=== PATIENT | female | born 1970 | race Caucasian/White ===

== ENCOUNTER 2020-03-02 08:21 | Outpatient (CLI) | payer OTHER, SELFPAY ==
--- NOTE | ~2020-03-02 | MM_ITS ---
EXAMINATION: MM screening [facility] [place] BI w alex HISTORY: Screening mammogram TECHNIQUE: Craniocaudal and mediolateral oblique 3-D tomosynthesis images were obtained and synthetic 2-D images were generated. CAD analysis was submitted and interpreted. COMPARISON: 09/04/2018, 06/01/2017, 11/22/2016, 05/16/2016 BREAST PARENCHYMAL COMPOSITION: There are scattered areas of fibroglandular density. FINDINGS: There is no evidence of suspicious mass, calcification, or architectural distortion to sugg est malignancy in either breast. There has been no suspicious interval change. IMPRESSION: 1. No mammographic evidence of malignancy. 2. Recommend routine screening mammography in one year. BI-RADS Category 1: Negative Reviewed, dictated and finalized at location A. MBOAT PILOT
== END 2020-03-02 08:22 | disposition home or self-care (01) ==
LOC: ANHIMG 08:24
PROVIDERS: PCP Family Medicine; Visit Provider Obstetrics & Gynecology
DX: Z12.31 Encounter for screening mammogram for malignant neoplasm of breast (principal)
CPT/HCPCS: 77063; 77067

== ENCOUNTER 2021-04-09 08:23 | Outpatient (CLI) | payer OTHER, SELFPAY ==
--- NOTE | ~2021-04-09 | MM_ITS ---
EXAMINATION: MM screening [facility] BI w alex HISTORY: Screening TECHNIQUE: Craniocaudal and mediolateral oblique 3-D tomosynthesis images were obtained and synthetic 2-D images were generated. CAD analysis was submitted and interpreted. COMPARISON: Comparison to multiple prior studies sequentially, with oldest reviewed study dated 05/16. BREAST PARENCHYMAL COMPOSITION: Breast composed of scattered areas of fibroglandular density FINDINGS: There is no evidence of suspicious mass, calcification, or architectural distortion to sugg est malignancy in either breast. There has been no suspicious interval change. IMPRESSION: 1. No mammographic evidence of malignancy. 2. Recommend routine screening mammography in one year. BI-RADS Category 1: Negative Reviewed, dictated and finalized at location A. UST EQUIPMENT OPERATOR
== END 2021-04-09 08:24 | disposition home or self-care (01) ==
PROVIDERS: PCP Family Medicine; Visit Provider Obstetrics & Gynecology
DX: Z12.31 Encounter for screening mammogram for malignant neoplasm of breast (principal)
CPT/HCPCS: 77063; 77067

== ENCOUNTER 2022-03-11 21:56 | Emergency (ER) | payer OTHER, SELFPAY ==
--- NOTE | ~2022-03-11 | CT_ITS ---
EXAMINATION: CT abdomen pelvis wo con DATE: 03/12/2022 02:08 INDICATION: Left flank pain radiating to the left upper quadrant TECHNIQUE: Computed tomography (CT) of the abdomen and pelvis was performed without intravenous contr ast. Automated exposure control and iterative reconstruction technique were employed. The dose-length product was 1499.45 mGy-cm. COMPARISON: CT dated 08/09/2012 FINDINGS: Ossified left lower lobe nodule along with calcified mediastinal lymph nodes consistent with old gran ulomatous disease. Heart size is normal. No pericardial or pleural effusion. Small sliding-type hiata l hernia. Diffuse hepatic steatosis. Multiple gallstones within the otherwise normal gallbladder. No gallbladder wall thickening or pericholecystic inflammatory stranding to suggest acute cholecystitis. No intra or extra hepatic biliary ductal dilation. Spleen, pancreas and bilateral adrenal glands are normal. Kidneys and ureters are normal with no urolithiasis, hydroureteronephrosis or perinephric/ur eteral stranding. Bladder, uterus and right adnexa are normal. 3.0 cm left ovarian cyst/follicle. No free intraperitoneal gas or fluid. No pathologically enlarged abdominal or pelvic lymphadenopathy. Sm all to moderate-sized fat-containing umbilical hernia. Mild to moderate lumbar and severe lower thora cic spondylosis. 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 IMPRESSION: 1. 3.0 cm left ovarian cyst/follicle. No urolithiasis or acute intra-abdominal/pelvic process. Reviewed, dictated and finalized at location A. [employer] IMPRESSION: 1. 3.0 cm left ovarian cyst/follicle. No urolithiasis or acute intra-abdominal/ pelvic process.
[2022-03-11 22:01] VITALS: BP 163/75; PULSE 107; RESP 18; TEMP 36.7; O2SAT 96
[2022-03-11 22:13] LABS: Basophils Percent Auto 0.3 % (0.2-1.2); Eosinophils Percent Auto 0.3 % (0-4.4); Hematocrit 39.9 % (37.0-47.0); Hemoglobin 13.1 g/dL (12.0-15.0); Immature Granulocyte Absolute 0.02 K/mm3 (0.00-0.031); Immature Granulocyte Percent A 0.2 % (0-0.5); Lymphocytes Absolute Auto 1.86 K/mm3 (0.9-3.2); Mean Corpuscular HGB Conc 32.8 g/dl (32-36); Mean Corpuscular Hemoglobin 28.7 pg (26-34); Mean Corpuscular Volume 87.5 fl (80-100); Mean Platelet Volume 8.7 fl (7.4-10.4); Monocytes Absolute Auto 0.8 K/mm3 (0.1-0.6); Monocytes Percent Auto 8.5 % (2.6-8.5); Neutrophils Absolute Auto 6.6 K/mm3 (1.3-6.7); Neutrophils Percent Auto 70.7 % (45.5-73.1); Platelet Count Result 275 k/mm3 (150-375); Red Blood Count 4.56 M/mm3 (4.2-5.4); Red Cell Distribution Width 13.8 % (11.5-14.5); White Blood Count 9.3 K/mm3 (4.5-10.0)
[2022-03-11 22:23] LABS: Alanine Aminotransferase 27 U/L (6-35); Albumin Level 4.4 g/dL (3.5-5.1); Alkaline Phosphatase 91 U/L (38-126); Anion Gap 6 mmol/L (8-16); Aspartate Amino Transferase 25 U/L (14-36); Bilirubin,Total 0.3 mg/dL (0.2-1.3); Blood Urea Nitrogen 16 mg/dL (7-17); Carbon Dioxide 31 mmol/L (22-30); Chloride 99 mmol/L (98-107); Estimated Glomerular Filt Rate > 60; Glucose 131 mg/dL (65-110); Lipase 67 U/L (23-300); Potassium 3.5 mmol/L (3.4-5.0); Sodium 136 mmol/L (137-145)
--- NOTE | 2022-03-12 01:45 | ED.GENADULT ---
HPI - General Adult General Chief complaint: Back Pain/Injury Stated complaint: back pain Time Seen by Provider: 03/12/22 01:27 History of Present Illness HPI narrative: 51-year-old female presenting to the emergency department for evaluation of left flank pain. Patient states that the symptoms began on Monday and has not since improved. Patient does have a prior history of kidney stones which she states was similar. Previous kidney stone was approximately 7 to 8 years ago. Patient denies any other falls or injuries. Patient states it does not feel muscular in nature. Patient denies any prior history of any abdominal surgeries. Related Data Home Medications Medication Instructions Recorded Confirmed acetaminophen 650 mg 650 mg PO Q8H 04/06/19 02/21/22 tablet,extended release melatonin 10 mg tablet,extended mg PO 10/01/19 02/21/22 release aspirin 81 mg chewable tablet 81 mg PO DAILY 09/04/20 02/21/22 cholecalciferol (vitamin D3) 10 10 mcg PO DAILY 09/04/20 02/21/22 mcg (400 unit) capsule psyllium husk 0.4 gram capsule 0.4 g PO DAILY 09/04/20 02/21/22 (Daily Fiber) Allergies Allergy/AdvReac Type Severity Reaction Status Date / Time No Known Allergies Allergy Verified 03/11/22 22:03 Review of Systems Review of Systems: CONSTITUTIONAL: Denies fever, chills, or sweats. EYES: Denies visual changes, redness, or discharge. ENT: Denies rhinorrhea, congestion, sore throat, or otalgia. CARDIOVASCULAR: Denies chest pain, palpitations, or edema. RESPIRATORY: Denies cough or dyspnea. GASTROINTESTINAL: See HPI GENITOURINARY: See HPI SKIN: Denies rash or itching. MUSCULOSKELETAL: Denies back pain, joint pain, or myalgia. NEUROLOGIC: Denies headache, numbness, or weakness. [facility] Past Medical History Medical History Acute sinus infection Dermatitis Diabetes mellitus Essential (primary) hypertension Kidney stone Morbid obesity with body mass index (BMI) of 60.0 to 69.9 in adult Right knee pain Umbilical hernia Surgical History Surgical History H/O dilation and curettage H/O nephrolithotomy with removal of calculi Post endometrial ablation syndrome Family History Family History Mother Hypertension Family history of diabetes mellitus in first degree relative Grandparent Hypertension Family history of lymphoma Diabetes mellitus Kidney stone Other Family history of malignant neoplasm Social History Social History Smoking status: Never smoker Alcohol intake: current Alcohol use details: 2 a year Substance use: unknown 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 HEAD: normocephalic, atraumatic. EYES: PERRLA/EOMI, conjunctivae clear. NOSE: Normal no drainage NECK: Supple. No adenopathy, no masses. RESPIRATORY: Airway patent, respirations nonlabored. Clear to auscultation bilaterally, no rales, rhonchi, wheezing. CARDIOVASCULAR: Regular rate and rhythm without murmurs rubs or gallops. ABDOMINAL: Some left CVA tenderness to palpation. No significant left upper quadrant tenderness to palpation. Abdomen is soft without distention and no evidence of peritonitis. MUSCULOSKELETAL: Moves all extremities. Strength/ROM intact, No edema, No calf tenderness. NEURO: Alert. Cranial nerves II through XII intact. Grossly intact SKIN: Warm, dry. Normal Color Course Course Emergency Course: Patient did have hematuria and with her previous history of kidney stones and her description of left flank pain kidney stone was a suspected etiology of her pain today. CT scan without contrast was ordered and showed no evidence of urolithiasis
[2022-03-12] MEDS: SODIUM CHLORIDE 0.9% IV 1,000 ML 999 ML IV CONT (02:39)
[2022-03-12] MEDS: HYDROmorphone HCL INJ (*CRX) 1 MG/ML SYR 0.5 MG IV PUSH (02:40)
[2022-03-12 03:10] LABS: Mucus Urine Rare /lpf; Squamous Epithelial Cell Urine Occasional /hpf (Few); WBC Urine 0-3 /hpf
[2022-03-12 03:17] LABS: Add Urine Microscopic? YES; Appearance Urine Clear (Clear); Bilirubin Urine Negative (Negative); Blood Urine Trace-Intact (Negative); Color Urine Light Yellow (Yellow); Glucose Urine UA Negative (Negative); Ketones Urine Negative (Negative); Leukocyte Esterase Ur Negative LEU/UL (Negative); Nitrate Urine Negative (Negative); Protein Urine Negative (Negative); Specific Grav Ur 1.025 (1.001-1.035); Urobilinogen Urine 0.2 mg/dL (<2.0); pH Urine 5.5 (5.0-9.0)
[2022-03-12 03:26] VITALS: O2SAT 99
[2022-03-12 03:50] VITALS: BP 145/85; PULSE 96; RESP 20; O2SAT 97
== END 2022-03-12 04:10 | disposition home or self-care (01) ==
PROVIDERS: Emergency Provider Emergency Medicine; PCP Family Medicine
DX: R10.9 Unspecified abdominal pain (principal); R31.9 Hematuria, unspecified; E11.9 Type 2 diabetes mellitus without complications; I10 Essential (primary) hypertension; E66.01 Morbid (severe) obesity due to excess calories; Z87.442 Personal history of urinary calculi; N83.202 Unspecified ovarian cyst, left side; Z79.82 Long term (current) use of aspirin; Z79.84 Long term (current) use of oral hypoglycemic drugs
CPT/HCPCS: 36415; 74176; 80053; 81001; 83690; 85025; 96361; 96374; 99284; J1170; J7030

== ENCOUNTER 2023-01-26 08:40 | Outpatient (CLI) | payer OTHER, SELFPAY ==
--- NOTE | 2023-02-15 19:40 | WPDSLEEPSTUD ---
Sleep Study Date of Study: 01/26/23 Ordering Provider: Yessi Carrasco DO Interpreting Physician: Yessi Carrasco DO Sleep Study Type: CPAP Titration Height: 1.6 m Weight: 147.871 kg Body Mass Index: 57.7 Neck Circumference (inches): 18.5 [place]: 5 Reason for Sleep Study Daytime hypersomnia and unrestful sleep on CPAP over 10 years? Split PSG 03/01/2012 ? Severe SIMI with overall AHI 121.2 and desaturation to 83%. ?She was started on CPAP 5 cm and titrated to CPAP 9 cm with resolution of her sleep apnea on the final pressure.? She was prescribed CPAP 9 cm.? She is currently on APAP.? Sleep History Patient is a 52 year old female with history of sleep apnea, anxiety, depression, diabetes, hypertension, and obesity who presented for a CPAP titration study in the lab for further evaluation of daytime hypersomnia and unrestful sleep despite being on CPAP. She has been on CPAP over 10 years after a split study 03/01/2012 showed severe sleep apnea. She has a history of sleepwalking since childhood. She was started on Adderall over 10 years ago for daytime sleepiness and also currently taking Sunosi.? She never awakens from sleep short of breath. She rarely awakens at night with heartburn, belching or cough.? She rarely snores and occasionally snores loudly enough that others complain. She frequently has trouble sleeping when she has a cold. She never suddenly wakes up gasping for breath during the night. She never has breathing problems at night. She rarely sweats excessively at night. She never notices her heart pounding or beating irregularly during the night. She rarely falls asleep during the day. ?She never falls asleep involuntarily and she never falls asleep while driving. She never experiences loss of muscle tone with strong emotion. She occasionally has trouble at work because of sleepiness. She never feels paralyzed on waking or falling asleep. She occasionally experiences vivid dreams upon waking or falling asleep. She does not feel afraid of going to sleep. She occasionally has nightmares. She frequently recalls her dreams. She constantly has thoughts racing through her mind. She rarely feels sad or depressed. She rarely feels anxiety or worry about things. She rarely notices parts of her body jerk. She never kicks during the night. She never feels crawling or aching feelings in her legs. She constantly feels knee pain at night. She never grinds her teeth during sleep and rarely has morning jaw pain. She constantly feels bothered by knee pain during the day and is occasional awakened by pain during the night. She constantly wakes up feeling stiff in the morning. She rarely wakes feeling sore and achy in the morning. She rarely wakes with pain in her neck, spine, or joints but constantly wakes with knee pain.? Normal bedtime is around midnight to 1am on the weekdays and between 2am to 3am on the weekends, taking about 20 minutes to fall asleep. She typically gets about 6 to 7 hours of sleep per night. Her wake up time is around 7:30am on the weekdays and between 9am to 10am on the weekends. She typically wakes up sometimes once per night, awake less than 5 minutes and she will go to the bathroom and come back to bed. She occasionally reads or watches TV before falling asleep. She does not take daytime naps.? Habits:? Never tobacco smoker. Drinks about 2 caffeinated beverages per day. Rare alcohol use. No recreational substances.? PMFSH Past Medical History Medical History Acute sinus infection Anxiety and depression Arthritis Dermatitis Diabetes mellitus Essential (primary) hypertension Kidney stone Morbid obesity with body mass index (BMI) of 60.0 to 69.9 in adult Obstructive sleep apnea (adult) (pediatric) Right knee pain Screening mammogram, encounter for Umbilical hernia Surgical History Surgical History H/O dilat
[2023-02-15 19:52] VITALS: BMI 57.7
== END 2023-01-27 07:49 | disposition home or self-care (01) ==
LOC: ANHCSM 08:40
PROVIDERS: PCP Family Medicine; Visit Provider Family Medicine
DX: G47.33 Obstructive sleep apnea (adult) (pediatric) (principal); G47.61 Periodic limb movement disorder
CPT/HCPCS: 95811

== ENCOUNTER 2023-02-03 08:11 | Outpatient (CLI) | payer OTHER, SELFPAY ==
--- NOTE | ~2023-02-03 | MM_ITS ---
EXAMINATION: MM screening [facility] BI w alex HISTORY: Screening mammogram TECHNIQUE: Craniocaudal and mediolateral oblique 3-D tomosynthesis images were obtained and synthetic 2-D images were generated. CAD analysis was submitted and interpreted. COMPARISON: 04/09/2021, 03/02/2020, 09/04/2018 bilateral screening mammogram examinations BREAST PARENCHYMAL COMPOSITION: There are scattered areas of fibroglandular density. FINDINGS: There is no evidence of suspicious mass, calcification, or architectural distortion to sugg est malignancy in either breast. There has been no suspicious interval change. IMPRESSION: 1. No mammographic evidence of malignancy. 2. Recommend routine screening mammography in one year. BI-RADS Category 1: Negative Reviewed, dictated and finalized at location B. E GRADER TENDER
== END 2023-02-03 08:12 | disposition home or self-care (01) ==
PROVIDERS: PCP Family Medicine; Visit Provider Obstetrics & Gynecology
DX: Z12.31 Encounter for screening mammogram for malignant neoplasm of breast (principal)
CPT/HCPCS: 77063; 77067

== ENCOUNTER 2023-02-06 13:49 | Outpatient (CLI) | payer OTHER, SELFPAY ==
--- NOTE | 2023-02-06 14:01 | ECHO_ITS ---
Patient Info Name: Ellen Ball Age: 52 years : 1970 Gender: Female Ht: 63 in Wt: 326 lbs BSA: 2.66 m2 HR: 88 bpm BP: 149 / 87 mmHg Technical Quality: Poor Exam Date: 02/06/2023 2:02 PM Exam Location: Echo Lab Patient Status: Outpatient Admit Date: 02/06/2023 Staff Ordering Physician: Yessi Carrasco DO Reclaimer: Eelanor Tao RDCS Attending Provider: Yessi Carrasco DO Referring Physician: Danilo PRIETO; Exam Type: CA echo doppler color flow Study Info Indications R01.1 - Cardiac murmur, unspecified Complete two-dimensional, color flow and Doppler transthoracic echocardiogram is performed. Reason for Poor Study: patient body habitus Summary 1. Complete two-dimensional, color flow and Doppler transthoracic echocardiogram is performed. 2. Left ventricular chamber dimension is normal. 3. Left ventricular systolic function is normal, estimated at 60-65%. 4. The left ventricular diastolic function is grade II diastolic dysfunction. 5. E/e' 9 is minimally elevated. 6. No pulmonary hypertension, estimated pulmonary arterial systolic pressure is 29 mmHg. Left Ventricle E/e' 9 is minimally elevated. Left ventricular chamber dimension is normal. Left ventricular systolic function is normal, estimated at 60-65%. The left ventricular diastolic function is grade II diastolic dysfunction. Right Ventricle Right ventricular chamber dimension is normal. Right ventricular systolic function is normal. Left Atria Left atrial chamber dimension is normal. Right Atria Right atrial chamber dimension is normal. Aortic Valve The aortic valve is trileaflet. There is no aortic valve stenosis. There is no aortic valve regurgitation. Pulmonic Valve There is no pulmonic regurgitation. Mitral Valve There is no mitral valve stenosis. There is no mitral valve regurgitation. Tricuspid Valve There is no tricuspid valve regurgitation. No pulmonary hypertension, estimated pulmonary arterial systolic pressure is 29 mmHg. Pericardium/Pleural There is no pericardial effusion. Inferior Vena Cava Normal inferior vena cava with >50% collapse upon inspiration consistent with normal right atrial pressure, 5 mmHg. Aorta The aortic root size at the sinus of Valsalva is normal. Left Ventricular Outflow Tract Name Value Normal LVOT 2D LVOT Diameter 2.0 cm LVOT Doppler LVOT Peak Gradient 8 mmHg LVOT Mean Gradient 5 mmHg LVOT VTI 25 cm LVOT VTI/AV VTI Ratio 0.7 LVOT Stroke Volume 80 ml LVOT CO 6.7 l/min LVOT CI 2.5 l/min/m2 Pulmonic Valve Name Value Normal RVOT Doppler RVOT Peak Gradient 4 mmHg PV Doppler PV Peak Gradient
== END 2023-02-06 13:50 | disposition home or self-care (01) ==
LOC: ANHCARD 13:50
PROVIDERS: PCP Family Medicine; Visit Provider Family Medicine
DX: R01.1 Cardiac murmur, unspecified (principal)
CPT/HCPCS: 93306

== ENCOUNTER 2023-07-07 11:23 | Outpatient (CLI) | payer OTHER, SELFPAY ==
--- NOTE | ~2023-07-07 | XR_ITS ---
Left Knee Technique: AP, lateral, and sunrise views were obtained. Clinical History: Pain Findings: No fracture or dislocation is seen. There is severe tricompartmental osteoarthritis. There is tricompartmental joint space narrowing with extensive osteophyte formation.. Soft tissues are unre markable. No joint effusion is seen. Impression: Severe tricompartmental osteoarthritis, as detailed above. Reviewed, dictated and finalized at location M. Impression: Severe tricompartmental osteoarthritis, as detailed above.
--- NOTE | ~2023-07-07 | XR_ITS ---
Right Knee Technique: AP, lateral, and sunrise views were obtained. Clinical History: Pain Findings: No fracture or dislocation is seen. There is severe tricompartmental osteoarthritis. There is extensive osteophyte formation throughout the knee with tricompartmental joint space narrowing, wo rst in the medial compartment.. Soft tissues are unremarkable. No joint effusion is seen. Impression: Severe tricompartmental osteoarthritis, as detailed above. Reviewed, dictated and finalized at location M. Impression: Severe tricompartmental osteoarthritis, as detailed above.
== END 2023-07-07 11:24 | disposition home or self-care (01) ==
LOC: ANHIMG 11:25
PROVIDERS: PCP Family Medicine; Visit Provider Physician Assistant
DX: M17.0 Bilateral primary osteoarthritis of knee (principal)
CPT/HCPCS: 73562